=== PATIENT | female | born 1965 | race Two or more races ===

== ENCOUNTER 2019-02-25 10:41 | Outpatient (CLI) | payer OTHER ==
[~2019-02-25 10:41] MED LIST: IBUPROFEN600 MG PO; MEDROL DOSE PACK PO
== END 2019-02-25 10:49 | disposition home or self-care (01) ==
LOC: RAD 501 10:41
DX: R10.84 Generalized abdominal pain (principal)

== ENCOUNTER → 2019-02-26 | Outpatient (CLI) | payer OTHER | END | disposition home or self-care (01) | LOC: SONOGRAMA 07:09 | DX: R10.84 Generalized abdominal pain (principal) ==